=== PATIENT | male | born 1955 | race Caucasian/White ===

== ENCOUNTER → 2018-12-01 | Outpatient (CLI) | payer OTHER ==
[2018-12-01 14:00] LABS: Alanine Aminotransfer (ALT/SGP 26 U/L (12-78); Albumin/Globulin Ratio 1.2 (0.8-1.8); Alk Phos 31 U/L (50-136); Anion Gap 9 mmol/L (6-16); Aspartate Aminotrans (AST/SGOT 16 U/L (12-37); Bilirubin, Total 0.5 mg/dL (0.1-1.0); Blood Urea Nitrogen 19 mg/dL (8-24); Bun/Creatinine Ratio 20.9 (12.0-20.0); CHOL/HDL RATIO 3.1; CO2, Blood 26 mmol/L (21-32); Calcium, Blood 8.9 mg/dL (8.5-10.1); Chloride, Blood 104 mmol/L (98-108); Cholesterol 171 mg/dL (50-200); Creatinine, Blood 0.91 mg/dL (0.60-1.20); Globulin, Blood 3.4 g/dL (2.2-4.0); Glomerular Filtration Rate >60 (60-); Glucose, Blood 101 mg/dL (70-99); HDL Cholesterol 55 mg/dL (>39); LDL/HDL RATIO 1.9; Low Density Lipoprotein Chol 104 mg/dL (0-110); Potassium, Blood 4.3 mmol/L (3.5-5.5); Prostate Specific Antigen 0.458 ng/mL (0.000-4.000); Sodium, Blood 139 mmol/L (136-145); Total Protein, Blood 7.4 g/dL (6.4-8.2); Triglycerides 62 mg/dL (30-160); Very Low Density Lipoprot Chol 12 mg/dL (6-32)
== END | disposition home or self-care (01) ==
LOC: LAB SHORT 13:39 → LAB 13:39
PROVIDERS: Hospitalist
DX: Z12.5 Encounter for screening for malignant neoplasm of prostate (principal); I10 Essential (primary) hypertension
CPT/HCPCS: 80053; 80061; G0103

== ENCOUNTER → 2020-01-26 | Outpatient (CLI) | payer OTHER, MEDICARE ==
[2020-01-26 11:25] LABS: Body Fluid Crystals NEG (NEGATIVE)
[2020-01-26 11:57] LABS: BODY FLUID RBC 0.005 M/mm3 (0-0); RBC Count, Synovial Fluid 5000 /mm3 (0-0)
[2020-01-26 12:22] LABS: WBC Count, Synovial Fluid 26607 /mm3 (0-180)
[2020-01-26 12:26] LABS: Eos, Synovial Fluid 1 % (0-2); Lymphs, Synovial Fluid 4 % (0-15); Monocytes/Macrophages, Synovia 21 % (0-65); Neutrophils, Synovial Fluid 74 % (0-24)
[2020-01-26 12:27] LABS: Appearance, Synovial Fluid Cloudy (Clear); Color, Synovial Fluid Yellow (None-P Yel)
== END | disposition home or self-care (01) ==
LOC: LAB 11:15 → LAB SHORT 11:15
PROVIDERS: Orthopaedic Surgery
DX: M10.9 Gout, unspecified (principal)
CPT/HCPCS: 87070; 87205; 89051; 89060

== ENCOUNTER → 2020-02-05 | Outpatient (CLI) | payer OTHER, MEDICARE ==
[2020-02-05 10:36] LABS: Body Fluid Crystals NEG (NEGATIVE)
[2020-02-05 10:51] LABS: BODY FLUID RBC 0.003 M/mm3 (0-0); RBC Count, Synovial Fluid 3000 /mm3 (0-0)
[2020-02-05 11:06] LABS: WBC Count, Synovial Fluid 24228 /mm3 (0-180)
[2020-02-05 11:53] LABS: Lymphs, Synovial Fluid 17 % (0-15); Monocytes/Macrophages, Synovia 18 % (0-65); Neutrophils, Synovial Fluid 65 % (0-24)
[2020-02-05 11:54] LABS: Appearance, Synovial Fluid Hazy (Clear); Color, Synovial Fluid Yellow (None-P Yel)
== END | disposition home or self-care (01) ==
LOC: LAB 10:08 → LAB SHORT 10:08
PROVIDERS: Orthopaedic Surgery
DX: M25.461 Effusion, right knee (principal)
CPT/HCPCS: 87070; 87205; 89051; 89060

== ENCOUNTER 2020-03-04 09:03 | Day surgery (SDC) | payer MEDICARE, BC ==
[~2020-03-04] VITALS: Ht 172.7 cm; Wt 95.9 kg
[~2020-03-04 09:03] MED LIST: ALLO300 PO; LOSARTAN-HCTZ1 EACH PO
[2020-03-04 11:37] LABS: Appearance, Synovial Fluid Hazy (Clear); Color, Synovial Fluid Yellow (None-P Yel); Crystals, Synovial Fluid Not Seen (Not Seen)
[2020-03-04 12:01] LABS: BODY FLUID RBC 0.012 M/mm3 (0-0); RBC Count, Synovial Fluid 12000 /mm3 (0-0); WBC Count, Synovial Fluid 2832 /mm3 (0-180)
[2020-03-04 12:12] LABS: Lymphs, Synovial Fluid 8 % (0-15); Monocytes/Macrophages, Synovia 9 % (0-65); Neutrophils, Synovial Fluid 83 % (0-24)
[2020-03-04 12:16] LABS: Body Fluid Crystals NEG (NEGATIVE)
== END 2020-03-04 23:59 | disposition home or self-care (01) ==
LOC: ORSCSDS 09:03
PROVIDERS: Orthopaedic Surgery
PROC: 0SBC4ZZ Excision of Right Knee Joint, Percutaneous Endoscopic Approach (ICD-10-PCS; principal; 2020-03-04 10:15)
DX: M25.461 Effusion, right knee (principal); M17.11 Unilateral primary osteoarthritis, right knee; I10 Essential (primary) hypertension; Z79.899 Other long term (current) drug therapy
CPT/HCPCS: 89051; 89060; J0171; J0690; J1100; J1885; J2250; J2405; J2704; J3010; J7120

== ENCOUNTER → 2020-04-30 | Outpatient (CLI) | payer MEDICARE, BC | END | disposition home or self-care (01) | LOC: LAB SHORT 14:05 | DX: M13.161 Monoarthritis, not elsewhere classified, right knee (principal) | CPT/HCPCS: 85651; 86140; 86430 ==